=== PATIENT | female | born 1980 | race Caucasian/White ===

== ENCOUNTER 2024-10-07 07:24 | Emergency (ER) | payer OTHER ==
[2024-10-07 07:42] VITALS: BP 130/83; PULSE 64; RESP 16; TEMP 97.3; BMI 28.0
[2024-10-07] MEDS ORDERED: IBUPROFEN 600 MG TABLET (FP) PO ONE (08:25)
[2024-10-07] MEDS: IBUPROFEN 600 MG TABLET (FP) PO ONE (08:30)
== END 2024-10-07 09:45 | disposition home or self-care (01) ==
LOC: JER 07:24
DX: R07.2 Precordial pain (principal); V43.52XA Car driver injured in collision with other type car in traffic accident, initial encounter; Y92.239 Unspecified place in hospital as the place of occurrence of the external cause
CPT/HCPCS: 71046-TC-FY; 93005; 93010; 99284-25